=== PATIENT | female | born 1980 | race Caucasian/White ===

== ENCOUNTER 2016-07-10 07:56 | Emergency (ER) | payer OTHER ==
[~2016-07-10] VITALS: Ht 170.2 cm; Wt 59.0 kg
[~2016-07-10 07:56] MED LIST: ADDERALL20 MG PO; AMPHETAMINE SAL20 MG PO; ARIPIPRAZOLE5 MG PO; ATARAX,VISTARIL50 MG PO; AZITHROMYCIN500 M1 PO; CATAPRES0.1 MG PO; CATAPRES0.2 MG PO; CELEXA20 MG PO; CIPRO500 MG PO; CLONIDINE HCL0.2 MG PO; DEPAKOTE250 MG PO; DILAUDID2 MG PO; DOXEPIN HCL150 MG PO; ENDOCET 5-3251 EACH PO; ESKALITH300 M1 PO; ESZOPICLONE3 MG PO; FLAGYL500 MG PO; FLEXERIL10 MG PO; FLEXERIL5 MG PO; GABAPENTIN400 MG PO; HYDROXYZINE HCL50 MG PO; HYDROXYZINE PAM50 MG PO; KEFLEX500 MG PO; LUNESTA3 MG PO; METOCLOPRAM5 MG/1 M1 PO; METOCLOPRAMIDE H5 MG PO; METRO CREAM 0.745 GM TP; MOTRIN600 MG PO; MOTRIN800 MG PO; NAPROSYN500 MG PO; NEURONTIN400 MG PO; NO HOME MEDS; NORCO 5/3251 TABLET PO; OXYCODONE HCL5 MG PO; PANTOPRAZOLE SO40 MG PO; PERCOCET 5/31 TABLET PO; PREDNISONE20 MG PO; PROMETHAZINE12.5 M1 PO; REGLAN10 MG PO; RISPERDAL M-TA0.5 MG PO; RISPERDAL2 M1 PO; SUCRALFATE1 GM PO; TEGRETOL-XR,CA200 MG PO; TEGRETOL-XR,CA400 MG PO; TEGRETOL200 MG PO; TYLENOL EXTRA500 MG PO; ULTRACET1 TABLET PO; ULTRAM50 MG PO; VALIUM2 MG PO; VALIUM5 MG PO; VENLAFAXINE HC150 MG PO; VENLAFAXINE225 MG PO; VENTOLIN HFA18 GM IH; WELLBUTRIN SR200 MG PO; WELLBUTRIN XL150 MG PO; XANAX2 MG PO; ZOFRAN ODT4 MG PO; ZOFRAN4 MG PO; ZOLPIDEM TART12.5 MG PO
[2016-07-10 09:06] LABS: EOSINOPHIL (%) 0.2 % (0-5); HEMATOCRIT 41.1 % (36.0-46.0); IMMATURE GRANULOCYTE (%) 0.5 % (0.0-0.7); INSTRUMENT ABS NEUTROPHIL CT 4.3 K/uL; LYMPHOCYTE COUNT 1.7 K/uL (1.0-2.8); MCH 29.1 PG (29.0-34.0); MCHC 34.1 G/DL (30.0-36.0); MCV 85.4 FL (83-99); MONOCYTE (%) 6.8 % (3-12); MONOCYTE COUNT 0.4 K/uL (0-0.8); NEUTROPHIL (%) 65.8 % (45-76); NEUTROPHIL COUNT 4.3 K/uL (1.8-6.4); PLATELET COUNT 155 K/uL (156-360); RBC DIS.WIDTH-CV 14.3 % (11.8-14.6); RBC DIS.WIDTH-SD 44.6 % (39-53); RED BLOOD COUNT 4.81 M/uL (3.80-5.20); WHITE BLOOD COUNT 6.5 K/uL (4.1-10.2)
[2016-07-10 09:15] LABS: CHLORIDE 98 mEq/L (99-109); POTASSIUM 3.3 mEq/L (3.7-5.4); SODIUM 137 mEq/L (136-147)
[2016-07-10 09:17] LABS: GLUCOSE 219 mg/dL (70-99)
[2016-07-10 09:18] LABS: ANION GAP 19 MEQ/L (2-14)
[2016-07-10 09:19] LABS: TOTAL BILIRUBIN 0.6 mg/dL (0.0-1.0)
[2016-07-10 09:20] LABS: ALKALINE PHOSPHATASE 79 IU/L (3-129)
[2016-07-10 09:21] LABS: GFR ESTIMATE (CALCULATED) > 59 mL/min/
[2016-07-10 09:22] LABS: UREA NITROGEN (BUN) 12 mg/dL (9-23)
[2016-07-10 09:24] LABS: LIPASE 10 U/L (1.0-51.0)
[2016-07-10 09:33] LABS: QUANTITATIVE HCG < 4.0 MIU/ML
[2016-07-10] MEDS ORDERED: BENTYL20 MG PO (12:27)
[2016-07-10] MEDS ORDERED: ZOFRAN ODT4 MG PO (12:27)
[2016-07-10] MEDS ORDERED: FLAGYL500 MG PO (12:27)
[2016-07-10] MEDS ORDERED: CIPRO500 MG PO (12:27)
[2016-07-10 14:25] VITALS: BP 147/83
== END 2016-07-10 14:34 | disposition home or self-care (01) ==
LOC: EME 07:56
PROVIDERS: Emergency Medicine
DX: K52.9 Noninfective gastroenteritis and colitis, unspecified (principal); J45.909 Unspecified asthma, uncomplicated; Z87.891 Personal history of nicotine dependence
CPT/HCPCS: 74177; 80053; 83690; 84702; 85025; 99281; 99285; J1885; J2270; J2405; J7030

== ENCOUNTER 2017-04-24 09:16 | Emergency (ER) | payer OTHER ==
[~2017-04-24] VITALS: Ht 170.2 cm; Wt 54.1 kg
[~2017-04-24 09:16] MED LIST changes: +BENTYL20 MG PO
[2017-04-24 09:47] VITALS: BP 150/89
== END 2017-04-24 09:47 | disposition home or self-care (01) ==
LOC: EME 09:16
DX: F11.23 Opioid dependence with withdrawal (principal); R20.2 Paresthesia of skin; F32.9 Major depressive disorder, single episode, unspecified; J44.9 Chronic obstructive pulmonary disease, unspecified; F41.9 Anxiety disorder, unspecified; Z87.891 Personal history of nicotine dependence
CPT/HCPCS: 99281; 99283